=== PATIENT | male | born 1935 | race Caucasian/White ===

== ENCOUNTER 2021-12-27 10:08 | Inpatient (IN) | payer MEDICARE ==
[~2021-12-27] VITALS: Ht 177.8 cm; Wt 73.0 kg
[~2021-12-27 10:08] MED LIST: (None)20 M1 PO; ASPI325 PO; ASPI81EC PO; ATOR10 PO; BETA1 PO; CEPH500 PO; CHOLESTOFF; CYAN500 PO; FINA5 PO; FISH1000 PO; FLAX PO; FOLI1 PO; GARLIC OIL PO; LOVA20 PO; LOVA40 PO; MECL25 PO; MULVITA PO; NIAC500 PO; OXYACE5T PO; RED RICE YEAST PO; RXOXYACE PO; SAW PALMETTO PO; TAMS.4ER PO; VITB100 PO; [UNRECOGNIZED DRUG - CODE] PO
[2021-12-27 10:43] LABS: BASOPHILS ABSOLUTE AUTO 0.05 K/mm3 (0.00-0.23); BASOPHILS PERCENT AUTO 0 % (0-2); EOSINOPHILS ABSOLUTE AUTO 0.03 K/mm3 (0.00-0.68); EOSINOPHILS PERCENT AUTO 0 % (0-6); IMMATURE GRAN ABSOLUTE AUTO 0.04 K/mm3 (0.00-0.10); IMMATURE GRAN PERCENT AUTO 0 % (0-1); LYMPHOCYTES ABSOLUTE AUTO 1.13 K/mm3 (0.84-5.20); LYMPHOCYTES PERCENT AUTO 9 % (21-46); MONOCYTES ABSOLUTE AUTO 1.19 K/mm3 (0.16-1.47); MONOCYTES PERCENT AUTO 9 % (4-13); Mean Corpuscular HGB 32.7 pg (26.0-34.0); Mean Corpuscular HGB Conc 31.7 g/dL (31.5-36.5); Mean Corpuscular Volume 103 fL (80-100); NEUTROPHILS PERCENT AUTO 81 % (41-73); Platelet Count 349 K/mm3 (150-400); RDW Coefficient Variation 13.7 % (11.7-14.2); RDW Standard Deviation 52.7 fL (35.1-46.3); Red Blood Cell Count 3.98 M/mm3 (4.30-5.90); White Blood Cell Count 13.04 K/mm3 (4.00-11.30)
[2021-12-27 11:03] LABS: Alanine Aminotransfer (ALT/SGP 19 U/L (12-78); Albumin, Blood 3.4 g/dL (3.4-5.0); Albumin/Globulin Ratio 0.9 (0.8-1.8); Alk Phos 98 U/L (50-136); Anion Gap 7 mmol/L (6-16); Aspartate Aminotrans (AST/SGOT 10 U/L (12-37); Bilirubin, Total 0.7 mg/dL (0.1-1.0); Blood Urea Nitrogen 16 mg/dL (8-24); Bun/Creatinine Ratio 17.5 (12.0-20.0); CO2, Blood 28 mmol/L (21-32); Calcium, Blood 8.7 mg/dL (8.5-10.1); Chloride, Blood 107 mmol/L (98-108); Creatinine, Blood 0.92 mg/dL (0.60-1.20); Globulin, Blood 3.7 g/dL (2.2-4.0); Glomerular Filtration Rate >60 (60-); Glucose, Blood 169 mg/dL (70-99); Potassium, Blood 4.1 mmol/L (3.5-5.5); Sodium, Blood 142 mmol/L (136-145); Total Protein, Blood 7.1 g/dL (6.4-8.2)
[2021-12-27] MEDS ORDERED: Ventolin/Prove6.7 GM INH (11:07)
[2021-12-27] MEDS ORDERED: FLUTICASONE-SA1 EAC9 IH (11:08)
[2021-12-27 15:30] LABS: Influenza A, PCR NEGATIVE (NEGATIVE); Influenza B, PCR NEGATIVE (NEGATIVE); Resp Syncytial Virus, PCR NEGATIVE (NEGATIVE); SARS-Cov-2 (COVID-19) PCR, MMC NEGATIVE (NEGATIVE)
--- NOTE | 2021-12-27 16:43 | NUR ---
SHIFT SUMMARY PATIENT ADMITTED FROM ER AT 1600. PATIENT SETTLED INTO ROOM. PATIENT MEDICATED X1 FOR PAIN TO RIGHT RIBS. PATIENT DENIES NAUSEA. PATIENT VISIBLY SHORT OF BREATH, USING ACCESSORY MUSCLES, RESP, 22 A MINUTE. CAN HEAR CRACKLES AT BEDSIDE. PATIENT REPORTS UNABLE TO TAKE DEEP BREATH AND COUGH DUE TO PAIN. PATIENT ON 2L VIA N/C. MAINTAINING SATS ABOVE 95%. PATIENT ON TELE, ST AT 115. PATIENT HAS BEEN UNABLE TO GET OUT OF BED DUE TO PAIN AND SOB. PATIENT IS EATING AND DRINKING WELL. LAST TROP. 137, TRENDING UP, EKG ORDERED AND DONE. PLACED IN FRONT OF CHART. PATIENT IS PLEASANT AND COOPERATIVE WITH CARE.
--- NOTE | 2021-12-28 04:48 | NUR ---
SHIFT SUMMARY: PATINT IS REPORTING PAIN IN RIGHT RIBS AND RIGHT LEG. REQUESTING ASPERCREME FOR LEG THIS WORKED FOR THIS PAIN AT HOME. PATIENT IS UNABLE TO TAKE DEEP BREATHS DO TO RIB PAIN. LUNGS ARE DIM WITH RONCHI AND UPPER AIRWAY CONGESTION. DR CAMILO IS NOTIFIED OF MOIST LUNG SOUNDS. ORDER OBTAINED TO STOP IVF. DR STEEL WAS NOTIFIED OF REQUEST FOR ASPERCREME, ORDER WAS OBTAINED AND MED WAS GIVEN WITH FAIR EFFECT. HR WAS TACKYCARDIC, FIRST DOSE OF LOPRESSOR WAS GIVEN WITH GOOD EFFECT.
[2021-12-28 05:49] LABS: Base Excess Venous 1.4 mmol/L; Bicarbonate Venous 24.8 mmol/L (24.0-30.0); PO2 Venous 53.5 mmHg (38-42); pH Blood Venous 7.34 (7.34-7.37)
[2021-12-28 06:07] LABS: BASOPHILS ABSOLUTE AUTO 0.02 K/mm3 (0.00-0.23); BASOPHILS PERCENT AUTO 0 % (0-2); EOSINOPHILS PERCENT AUTO 0 % (0-6); Hematocrit 36.7 % (37.0-53.0); Hemoglobin 11.5 g/dL (13.5-17.5); IMMATURE GRAN PERCENT AUTO 1 % (0-1); LYMPHOCYTES ABSOLUTE AUTO 1.26 K/mm3 (0.84-5.20); LYMPHOCYTES PERCENT AUTO 7 % (21-46); MONOCYTES ABSOLUTE AUTO 1.55 K/mm3 (0.16-1.47); MONOCYTES PERCENT AUTO 8 % (4-13); Mean Corpuscular HGB Conc 31.3 g/dL (31.5-36.5); Mean Corpuscular Volume 102 fL (80-100); Mean Platelet Volume 9.2 fL (9.1-12.4); NEUTROPHILS ABSOLUTE AUTO 16.01 K/mm3 (1.96-9.15); NEUTROPHILS PERCENT AUTO 85 % (41-73); Platelet Count 306 K/mm3 (150-400); RDW Standard Deviation 52.8 fL (35.1-46.3); Red Blood Cell Count 3.59 M/mm3 (4.30-5.90); White Blood Cell Count 18.94 K/mm3 (4.00-11.30)
--- NOTE | 2021-12-28 06:23 | NUR ---
PAIN: PAIN IN R LEG HAS NOT BEEN HELPED BY ASPERCREME. TYLENOL WAS ALSO GIVEN, TO EARLY TO GIVE NORCO. CALL IS PLACED TO DR STEEL, AWAITING CALL BACK.
[2021-12-28 06:24] LABS: Anion Gap 5 mmol/L (6-16); Blood Urea Nitrogen 16 mg/dL (8-24); Bun/Creatinine Ratio 20.2 (12.0-20.0); CO2, Blood 27 mmol/L (21-32); Calcium, Blood 8.6 mg/dL (8.5-10.1); Chloride, Blood 106 mmol/L (98-108); Creatinine, Blood 0.79 mg/dL (0.60-1.20); Glomerular Filtration Rate >60 (60-); Glucose, Blood 91 mg/dL (70-99); Magnesium, Blood 2.2 mg/dL (1.6-2.4); Phosphorus, Blood 3.5 mg/dL (2.5-4.9); Potassium, Blood 4.1 mmol/L (3.5-5.5); Sodium, Blood 138 mmol/L (136-145)
[2021-12-28 09:16] LABS: Source, Urine Clean Catch
[2021-12-28 09:22] LABS: Bilirubin, Urine Neg (Neg); Blood, Urine 5+ (Neg); Glucose Qualitative, Urine Neg (Neg); Ketones, Urine 1+ (Neg); Leukocyte Esterase, Urine 3+ (Neg); Nitrite, Urine Neg (Neg); Protein, Urine 3+ (Neg); Urobilinogen, Urine NORM (Normal)
[2021-12-28 09:40] LABS: Appearance, Urine Cloudy (Clear); Color, Urine Yellow (P-Yellow)
[2021-12-28 09:43] LABS: Bacteria Many /hpf; Red Blood Cells, Urine 25-50 /hpf (0-2); Squamous Epithelial Cells Few /hpf (Few); White Blood Cells, Urine TNTC /hpf (0-5)
--- NOTE | 2021-12-28 17:40 | NUR ---
SHIFT SUMMARY PATIENT MEDICATED X2 FOR PAIN. PATIENT DENIES NAUSEA AND SHORTNESS OF BREATH. PATIENT IS A SBA FOR TRANSFERS. PATIENT HAVING PAINS IN LEGS, NEW ORDERS FOR MUSCLE RELAXER. UA ORDERED AND SENT. RENAL ULTRASOUND ORDERED AND COMPLETE. PATIENT TITRATED TO ROOM AIR, MAINTAINING SATS ABOVE 95%. PATIENT ANXIOUS TO GET HOME. PATIENT VISITED THROUGHOUT SHIFT. PATIENT IS VERY EYAK. PATIENT HAD A 5 SECOND RUN OF SVT, DR. MEJIA NOTIFIED. PATIENT HAS BEEN SR IN 80-90'S OTHERWISE. PATIENT DENIES CHEST PAIN. PATIENT IS PLEASANT AND COOPERATIVE WITH XARE. PATIENT IS EATING AND DRINKING WELL.
[2021-12-29 04:39] LABS: Hematocrit 35.2 % (37.0-53.0); Hemoglobin 11.1 g/dL (13.5-17.5); Mean Corpuscular HGB 32.6 pg (26.0-34.0); Mean Corpuscular HGB Conc 31.5 g/dL (31.5-36.5); Mean Corpuscular Volume 103 fL (80-100); Mean Platelet Volume 9.3 fL (9.1-12.4); Platelet Count 311 K/mm3 (150-400); RDW Coefficient Variation 14.2 % (11.7-14.2); RDW Standard Deviation 54.1 fL (35.1-46.3); Red Blood Cell Count 3.41 M/mm3 (4.30-5.90)
[2021-12-29 05:00] LABS: Albumin, Blood 2.7 g/dL (3.4-5.0); Anion Gap 7 mmol/L (6-16); Blood Urea Nitrogen 22 mg/dL (8-24); Bun/Creatinine Ratio 25.5 (12.0-20.0); CO2, Blood 27 mmol/L (21-32); Calcium, Blood 8.6 mg/dL (8.5-10.1); Chloride, Blood 106 mmol/L (98-108); Creatinine, Blood 0.86 mg/dL (0.60-1.20); Glomerular Filtration Rate >60 (60-); Glucose, Blood 94 mg/dL (70-99); Magnesium, Blood 2.3 mg/dL (1.6-2.4); Phosphorus, Blood 2.4 mg/dL (2.5-4.9); Sodium, Blood 140 mmol/L (136-145)
--- NOTE | 2021-12-29 07:41 | NUR ---
SHIFT SUMMARY: PATINT HAS MAINTAINED 02 SATS 90-903% THROUGH THE NIGHT ON RA. LUNGS ARE CLEAR WITH UPPER AIRWAY CONGESTION. USING FLUTTER AND IS WITH ENCOURAGEMENT. CONTINUES TO REPORT RIGHT RIB AND RIGHT LEG PAIN. PRN TYLENOL, NORCO AND ASPERCREAM ARE ALTERNATED WITH GOOD EFFECT. PATIENT REPORTS NO PAIN AT REST THAT SHOOTS UP TO 7-8/10 WITH AT MOVEMENT. COUGH AND DEEP BREATHING ARE ENCOURAGE. PATIENT STATES " IT JUST HURTS SO MUCH TO DO THAT".
[2021-12-29] MEDS ORDERED: TIOT18 INH (15:03)
[2021-12-29] MEDS ORDERED: AZIT250 PO (15:06)
[2021-12-29] MEDS ORDERED: CEFD300 PO (15:08)
[2021-12-29] MEDS ORDERED: HYDROCODONE-AC1 EA17 PO (15:11)
[2021-12-29] MEDS ORDERED: METO25 PO (15:12)
[2021-12-29] MEDS ORDERED: GUAI600T33 PO (15:13)
[2021-12-29] MEDS ORDERED: PRED20 PO (15:16)
[2021-12-29] MEDS ORDERED: TIZA4 PO (15:17)
[2021-12-29] MEDS ORDERED: ALBU2.5V5 INH (15:20)
--- NOTE | 2021-12-29 16:45 | NUR ---
REVIEWED ASSESSMENTS AND NOTES BY ASAF RYAN AND AGREE WITH ALL OF THEM.
--- NOTE | 2021-12-29 16:49 | NUR ---
SHIFT SUMMARY- PT A&O X4. AT BEDSIDE THROUGHOUT DAY. PT DISCHARGED DURING SHIFT. REVIEWED MEDIACTION/EDUCATION PAPERWORK PRIOR TO DISCHARGE. PAPERWORK SENT HOME WITH PT AND FOR LOOKBACK REVIEW. PT ESCORTED OUT VIA WHEELCHAIR. FAMILY TO TRANSPORT TO HOME.
== END 2021-12-29 16:34 | disposition home health service (06) | DRG 183 ==
LOC: ER 10:08 → MEDS 10:09
PROVIDERS: Physician Assistant; ADMIT Family Medicine
DX: S22.41XA Multiple fractures of ribs, right side, initial encounter for closed fracture (principal); J96.21 Acute and chronic respiratory failure with hypoxia; I21.A1 Myocardial infarction type 2; J44.1 Chronic obstructive pulmonary disease with (acute) exacerbation; N40.0 Benign prostatic hyperplasia without lower urinary tract symptoms; Z20.822 Contact with and (suspected) exposure to COVID-19; E78.5 Hyperlipidemia, unspecified; M79.651 Pain in right thigh; Z66 Do not resuscitate; Z87.891 Personal history of nicotine dependence; Z86.73 Personal history of transient ischemic attack (TIA), and cerebral infarction without residual deficits; Z87.442 Personal history of urinary calculi; Z88.0 Allergy status to penicillin; Z88.2 Allergy status to sulfonamides; Z88.8 Allergy status to other drugs, medicaments and biological substances; Z79.82 Long term (current) use of aspirin; Z79.52 Long term (current) use of systemic steroids; Z79.899 Other long term (current) drug therapy; W17.89XA Other fall from one level to another, initial encounter
CPT/HCPCS: 0241U; 36415; 71046; 71101; 71260; 76770; 80053; 80069; 81001; 82550; 82553; 82607; 82746; 82803; 83735; 83880; 84145; 84484; 85025; 85027; 85379; 87077; 87086; 87186; 87449; 93005; 93010; 94640; 94664; 94760; 94761; 94762; 96365; 96372; 96375; 99285-25; A9270; G0378; J0456; J0696; J1650; J1885; J2270; J3010; J7030; J7060; J7512; Q9967

== ENCOUNTER 2022-01-28 08:02 | Emergency (ER) | payer MEDICARE ==
[~2022-01-28] VITALS: Ht 175.3 cm; Wt 72.6 kg
[~2022-01-28 08:02] MED LIST changes: +ALBU2.5V5 INH; +AZIT250 PO; +CEFD300 PO; +FLUTICASONE-SA1 EAC9 IH; +GUAI600T33 PO; +HYDROCODONE-AC1 EA17 PO; +METO25 PO; +PRED20 PO; +TIOT18 INH; +TIZA4 PO; +Ventolin/Prove6.7 GM INH
[2022-01-28 09:44] LABS: BASOPHILS ABSOLUTE AUTO 0.06 K/mm3 (0.00-0.23); BASOPHILS PERCENT AUTO 1 % (0-2); EOSINOPHILS PERCENT AUTO 2 % (0-6); Hemoglobin 10.8 g/dL (13.5-17.5); IMMATURE GRAN ABSOLUTE AUTO 0.03 K/mm3 (0.00-0.10); IMMATURE GRAN PERCENT AUTO 0 % (0-1); LYMPHOCYTES ABSOLUTE AUTO 1.15 K/mm3 (0.84-5.20); LYMPHOCYTES PERCENT AUTO 12 % (21-46); MONOCYTES ABSOLUTE AUTO 1.19 K/mm3 (0.16-1.47); MONOCYTES PERCENT AUTO 12 % (4-13); Mean Corpuscular HGB Conc 30.9 g/dL (31.5-36.5); Mean Corpuscular Volume 104 fL (80-100); Mean Platelet Volume 8.9 fL (9.1-12.4); NEUTROPHILS ABSOLUTE AUTO 7.25 K/mm3 (1.96-9.15); NEUTROPHILS PERCENT AUTO 74 % (41-73); Platelet Count 308 K/mm3 (150-400); RDW Coefficient Variation 13.6 % (11.7-14.2); RDW Standard Deviation 52.3 fL (35.1-46.3); Red Blood Cell Count 3.37 M/mm3 (4.30-5.90); White Blood Cell Count 9.88 K/mm3 (4.00-11.30)
[2022-01-28 10:10] LABS: Albumin, Blood 2.8 g/dL (3.4-5.0); Albumin/Globulin Ratio 0.8 (0.8-1.8); Bilirubin, Total 0.3 mg/dL (0.1-1.0); Bun/Creatinine Ratio 19.9 (12.0-20.0); Calcium, Blood 8.7 mg/dL (8.5-10.1); Creatinine, Blood 0.96 mg/dL (0.60-1.20); Globulin, Blood 3.7 g/dL (2.2-4.0); Potassium, Blood 4.5 mmol/L (3.5-5.5); Total Protein, Blood 6.5 g/dL (6.4-8.2)
[2022-01-28] MEDS ORDERED: MONDOXYNE NL100 MG PO (11:19)
== END 2022-01-28 11:55 | disposition home or self-care (01) ==
LOC: ER 08:02
PROVIDERS: Physician Assistant
DX: L03.115 Cellulitis of right lower limb (principal); B35.1 Tinea unguium; R60.0 Localized edema; Z87.891 Personal history of nicotine dependence; J44.9 Chronic obstructive pulmonary disease, unspecified; Z86.73 Personal history of transient ischemic attack (TIA), and cerebral infarction without residual deficits; Z79.82 Long term (current) use of aspirin; Z79.899 Other long term (current) drug therapy
CPT/HCPCS: 36415; 71046; 80053; 83690; 83880; 84484; 85025; 93005; 93010; 93971; 94640; 94664